=== PATIENT | female | born 1960 | race African-American/Black ===

== ENCOUNTER 2020-10-21 09:14 | Emergency (ER) | payer SELFPAY ==
[~2020-10-21] VITALS: Ht 157.5 cm; Wt 54.0 kg
[2020-10-21 09:14] VITALS: BP 166/95
[2020-10-21 09:57] LABS: BILIRUBIN,URINE NEGATIVE (NEG); CLARITY,URINE CLEAR; COLOR,URINE YELLOW; NITRITE,URINE NEGATIVE (NEG); PH,URINE 6.5 (<5.0-8.0); PROTEIN,URINE NEGATIVE (NEG-TRACE)
[2020-10-21 10:04] LABS: AMPHETAMINE/METHAMPHETAMINE NEG (NEG); BARBITURATES NEG (NEG); BENZODIAZEPINES NEG (NEG); CANNABINOIDS NEG (NEG); COCAINE POS (NEG); METHADONE NEG (NEG); OPIATES NEG (NEG); PHENCYCLIDINE NEG (NEG)
[2020-10-21 10:08] LABS: BACTERIA,URINE FEW /HPF (0-FEW)
[2020-10-21] MEDS ORDERED: NAPR-695 PO (10:34)
[2020-10-21] MEDS ORDERED: SULF1TAB24 PO (10:34)
[2020-10-21] MEDS ORDERED: PROVENTIL HFA6.7 G2 INH (10:34)
[2020-10-21] MEDS ORDERED: CYCL10TA2 PO (10:34)
--- NOTE | 2020-10-21 10:34 | PHYS DOC ---
Past Medical History Past Medical History: Anxiety, Bipolar, COPD, High Cholesterol, Hypertension, Other Additional Past Medical Histor: chronic back pain Past Surgical History: Hysterectomy Smoking Status: Current Every Day Smoker Alcohol Use: None General Adult EDM: Chief Complaint: OTHER COMPLAINTS HPI: HPI: Patient is a 60 year old female with history of hypertension, high cholesterol, COPD, anxiety, bipolar, who presents to the ED today stating she was seen at [facility] yesterday and they forgot to give her medicine for her COPD and chronic low back pain. She also states she has a UTI and would like to be given prescription for UTI. Denies any fever. Denies any nausea vomiting, denies any abdominal pain. Patient is talking nonstop. She states she has history of cocaine use but has not used cocaine for a long time. She states she spent last night at the mother's house and she is waiting for bed to open up at the local group home Review of Systems: Review of Systems: Constitutional: Denies fever or chills. [] Eyes: Denies change in visual acuity. [] HENT: Denies nasal congestion or sore throat. [] Respiratory: Denies cough or shortness of breath. [] Cardiovascular: Denies chest pain or edema. [] GI: Denies abdominal pain, nausea, vomiting, bloody stools or diarrhea. [] : Request UTI treatment. Denies dysuria. [] Musculoskeletal: Reports chronic low back pain Integument: Denies rash. [] Neurologic: Denies headache, focal weakness or sensory changes. [] Endocrine: Denies polyuria or polydipsia. [] Lymphatic: Denies swollen glands. [] Psychiatric: Talkative Heart Score: Risk Factors: Risk Factors: DM, Current or recent (<one month) smoker, HTN, HLP, family history of CAD, obesity. Risk Scores: Score 0 - 3: 2.5% MACE over next 6 weeks - Discharge Home Score 4 - 6: 20.3% MACE over next 6 weeks - Admit for Clinical Observation Score 7 - 10: 72.7% MACE over next 6 weeks - Early Invasive Strategies Allergies: Allergies: Allergies Coded Allergies Type Severity Reaction Last Updated Verified No Known Drug Allergies 10/21/20 No Physical Exam: PE: Constitutional: Well developed, well nourished, no acute distress, non-toxic appearance. [] HENT: Normocephalic, atraumatic, bilateral external ears normal, oropharynx moist, no oral exudates, nose normal. [] Eyes: PERRLA, EOMI, conjunctiva normal, no discharge. [] Neck: Normal range of motion, no tenderness, supple, no stridor. [] Cardiovascular:Heart rate regular rhythm, no murmur [] Lungs & Thorax: Bilateral breath sounds clear to auscultation [] Abdomen: Bowel sounds normal, soft, no tenderness, no masses, no pulsatile masses. [] Skin: Warm, dry, no erythema, no rash. [] Back: No tenderness, no CVA tenderness. [] Extremities: No tenderness, no cyanosis, no clubbing, ROM intact, no edema. [] Neurologic: Alert and oriented X 3, normal motor function, normal sensory function, no focal deficits noted. [] Psychologic: Very very talkative Current Patient Data: Labs: Laboratory Tests Test 10/21/20 09:48 Urine Collection Type Unknown Urine Color Yellow Urine Clarity Clear Urine pH 6.5 (<5.0-8.0) Urine Specific [place] 1.020 (1.000-1.030) Urine Protein Negative mg/dL (NEG-TRACE) Urine Glucose (UA) Negative mg/dL (NEG) Urine Ketones (Stick) Negative mg/dL (NEG) Urine Blood Trace (NEG) Urine Nitrite Negative (NEG) Urine Bilirubin Negative (NEG) Urine Urobilinogen Dipstick 1.0 mg/dL (0.2 mg/dL) Urine Leukocyte Esterase Moderate (NEG) Urine RBC 1-2 /HPF (0-2) Urine WBC 1-4 /HPF (0-4) Urine Squamous Epithelial Cells Mod /LPF Urine Bacteria Few /HPF (0-FEW) Urine Mucus Slight /LPF Urine Opiates Screen Neg (NEG) Urine Methadone Screen Neg (NEG) Urine Barbiturates Neg (NEG) Urine Phencyclidine Screen Neg (NEG) Urine Amphetamine/Methamphetamine Neg (NEG) Urine Benzodiazepines Screen Neg (NEG) Urine Cocaine Screen Pos (NEG) Urine Cannabinoids Screen Neg (NEG) Urine Ethyl Alcohol Neg (NEG) Vital Signs: Vital Signs Date Time Temp Pulse Resp B/P (MAP) Pulse Ox O2 Delivery O2 Flow Rate FiO2 10/21/20 09:14 98.0 80 16 166/95 (118) 97 Room Air 98.0 EKG: EKG: [] Radiology/Procedures: Radiology/Procedures: [] Course & Med Decision Making: Course & Med Decision Making Pertinent Labs and Imaging studies reviewed. (See chart for details) This is a 60-year-old female patient presenting to the ED today requesting prescription for COPD specifically albuterol inhaler, requesting medicine for UTI and also requesting pain medicine for her chronic low back pain. Patient reports being seen at [facility] yesterday and they forgot to give her these prescriptions. She is very talkative. She states she has not taken any cocaine for couple weeks. UDS is positive for cocaine. Urine positive for UTI. Given prescription for albuterol inhaler, given cyclobenz aprine and naproxen for her chronic back pain. Given Bactrim for UTI. Dragon Disclaimer: Nirmala Disclaimer: This electronic medical record was generated, in whole or in part, using a voice recognition dictation system. Departure Departure Impression: Primary Impression: Urinary tract infection Qualified Codes: N39.0 - Urinary tract infection, site not specified Additional Impressions: Chronic low back pain Qualified Codes: M54.5 - Low back pain; G89.29 - Other chronic pain Medication refill Homeless Cocaine use Disposition: 01 DC HOME SELF CARE/HOMELESS Condition: STABLE Referrals: NO PCP (PCP) Follow-up with your doctor as needed Patient Instructions: Back Pain, Adult, Cocaine Abuse-Brief, Urinary Tract Infection Additional Instructions: You have urinary tract infection. Ensure you complete your antibiotics. Use the prescribed medicines as ordered. Please follow-up with your doctor in 1 to 2 weeks. He tested positive for cocaine. Consider getting help for cocaine use Scripts Albuterol Sulfate (Proventil Hfa) 6.7 Gm Hfa.aer.ad 1 PUFF INH PRN Q6HRS PRN for SHORTNESS OF BREATH, #1 EACH 1 Refill Prov: MUTUNGA[employer] 10/21/20 Cyclobenzaprine Hcl (CYCLOBENZAPRINE HCL) 10 Mg Tablet 1 TAB PO TID, #30 TAB Prov: MUT[employer]GA[employer] 10/21/20 Naproxen (NAPROXEN) 375 Mg Tablet 1 TAB PO BID for pain, #14 TAB 0 Refills with food Prov: MUT[employer]GA[employer] 10/21/20 Sulfamethoxazole/Trimethoprim (BACTRIM DS TABLET) 1 Each Tablet 1 TAB PO BID for 7 Days, #14 TAB 0 Refills Prov: XANDER PARHAM APRN 10/21/20 XANDER PARHAM APRN Oct 21, 2020 10:34
== END 2020-10-21 11:52 | disposition home or self-care (01) ==
LOC: ER 09:14
DX: N39.0 Urinary tract infection, site not specified (principal); G89.29 Other chronic pain; M54.5 Low back pain; F14.90 Cocaine use, unspecified, uncomplicated; F41.9 Anxiety disorder, unspecified; J44.9 Chronic obstructive pulmonary disease, unspecified; E78.00 Pure hypercholesterolemia, unspecified; I10 Essential (primary) hypertension; F31.9 Bipolar disorder, unspecified; F17.200 Nicotine dependence, unspecified, uncomplicated; Z90.710 Acquired absence of both cervix and uterus; Z76.0 Encounter for issue of repeat prescription
CPT/HCPCS: 80307; 81001; 87086; 99283

== ENCOUNTER 2021-12-05 09:42 | Observation (INO) | payer MEDICAID ==
[~2021-12-05 09:42] MED LIST: CYCL10TA19 PO; NAPR-695 PO; PROVENTIL HFA6.7 G2 INH; SULF1TAB24 PO
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
== END 2021-12-05 12:00 | disposition home or self-care (01) ==
LOC: 3 NORTH 09:42
PROVIDERS: ADMIT Registered Nurse; ATTEND Registered Nurse
DX: T74.21XA Adult sexual abuse, confirmed, initial encounter (principal); I10 Essential (primary) hypertension; F31.9 Bipolar disorder, unspecified; J44.9 Chronic obstructive pulmonary disease, unspecified; Z86.73 Personal history of transient ischemic attack (TIA), and cerebral infarction without residual deficits; Z90.710 Acquired absence of both cervix and uterus
CPT/HCPCS: 99284; G0378; G0379